=== PATIENT | male | born 1975 | race Caucasian/White ===

== ENCOUNTER 2021-12-02 08:00 | Outpatient (CLI) | payer SELFPAY | END 2021-12-02 23:59 | LOC: LAB.N 08:00 | PROVIDERS: ATTEND Family Medicine | DX: U07.1 COVID-19 (principal) ==

== ENCOUNTER 2021-12-27 09:54 | Emergency (ER) | payer OTHER ==
[2021-12-27 10:06] VITALS: BP 152/95
--- NOTE | 2021-12-27 10:15 | ED Physician Documentation ---
PD HPI HEADACHE - Stated complaint Stated Complaint: HEAD INJURY - Chief complaint Chief Complaint: Trauma Hd/Nk - History obtained from History obtained from: Patient - Additional information Additional information: 46-year-old gentleman, active duty in the [employer]. Approximate 48 hours ago he was coming down off of some stairs off of a plane and slipped and hit the back of his head on the steps. He did not lose consciousness but was dazed. Had a severe headache initially but that has since defervesced to mild to moderate. No nausea or vomiting. He went to walk-in clinic and was referred here for further evaluation and treatment. Review of Systems Constitutional: denies: Fever, Chills Nose: denies: Rhinorrhea / runny nose, Congestion, Epistaxis Throat: denies: Sore throat Cardiac: denies: Chest pain / pressure, Palpitations Respiratory: denies: Dyspnea, Cough PD PAST MEDICAL HISTORY - Past Medical History Past Medical History: Yes Cardiovascular: Hypertension, Deep vein thrombosis Respiratory: None Neuro: None Endocrine/Autoimmune: None GI: GERD : None HEENT: None Psych: None Musculoskeletal: None Derm: None - Past Surgical History Past Surgical History: No - Present Medications Home Medications: Ambulatory Orders Medication Instructions Recorded Confirmed Aspirin [[place] Aspirin] 81 mg PO DAILY 12/27/21 12/27/21 Famotidine [Pepcid] 20 mg PO DAILY 12/27/21 12/27/21 Omeprazole Magnesium 20 mg PO DAILY 12/27/21 12/27/21 - Allergies Allergies/Adverse Reactions: Allergies Allergy/AdvReac Type Severity Reaction Status Date / Time No Known Drug Allergies Allergy Verified 12/27/21 10:06 - Social History Does the pt smoke?: No Smoking Status: Never smoker Does the pt drink ETOH?: Yes Does the pt have substance abuse?: No - Immunizations Immunizations are current?: Yes PD ED PE NORMAL - Vitals Vital signs reviewed: Yes - General General: Alert and oriented X 3, No acute distress - HEENT HEENT: PERRL, EOMI - Neck Neck: Supple, no meningeal sign, No bony TTP - Neuro Neuro: Alert and oriented X 3, 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 He went to the walk-in clinic and was advised to come here. He does not strictly fit criteria needed for CT especially given the timeframe and the fact that his symptoms are improving. We discussed CT scanning and it was offered but he declined after discussion. Departure - Departure Disposition: 01 Home, Self Care Clinical Impression: Concussion Qualifiers: Encounter type: initial encounter Loss of consciousness presence/duration: without LOC Qualified Code(s): S06.0X0A - Concussion without loss of consciousness, initial encounter Condition: Good Record reviewed to determine appropriate education?: Yes Instructions: ED Concussion Comments: If you develop worsening symptoms, especially if the headache were to get worse or you get vomiting please return for reevaluation. Otherwise no specific therapy is necessary. Tylenol and ibuprofen as needed for pain. Forms: Activity restrictions
== END 2021-12-27 10:28 | disposition home or self-care (01) ==
LOC: ED 09:54
DX: S06.0X0A Concussion without loss of consciousness, initial encounter (principal); W01.198A Fall on same level from slipping, tripping and stumbling with subsequent striking against other object, initial encounter; Y99.1 Military activity; I10 Essential (primary) hypertension; Z86.718 Personal history of other venous thrombosis and embolism
CPT/HCPCS: 99281; 99282

== ENCOUNTER 2022-02-01 09:02 | Outpatient (CLI) | payer OTHER ==
[2022-02-01 10:08] VITALS: BP 147/94
--- NOTE | 2022-02-01 10:08 | SLEEP CARE CONSULTATION ---
Information from patient questionnaire entered by Isiah Camargo MA. I have reviewed and concur with the information entered by Isiah Camargo MA. This document represents the service I personally performed and the decisions made by , Samantha aGllo ARNP. History of Present Illness Service Date and Time: 02/01/2022 0902 Reason for Visit: New patient (ONSET 11/2021, NO PRIORS,) Chief Complaint: reports: Unrefreshed sleep, Snoring, Observed pauses in breathi ng, Fatigue Date of Onset: LAST 5 YEARS Usual bedtime: 2200 Time it takes to fall asleep: RIGHT AWAY Snores at night: Yes Observed to quit breathing while asleep: Yes Sleeps alone due to snoring: No Number of times waking at night: 1-2 Reasons for waking at night: reports: Snoring, Gasping for air, Bathroom Toss, Turn, or Twitch while sleeping: Yes Recalls having dreams: No Usually gets out of bed at: DEPENDS ON WORK; work can shift from nights to days, changing weekly someti Feels refreshed in the morning: No Morning headache: Yes (1-2 times a week) Sleepy or fatigued during the day: Yes Ever fallen asleep while driving: Yes (earlier age, not recent; no drowsy driving now) Takes day naps: Yes (situational, after long days at work) Dreams during day naps: Yes Prior sleep studies: No Additional HPI information: I had the pleasure of seeing JUAN WARE today regarding the possibility of him having a sleep disorder. His current complaints are fatigue, observed pauses in breathing, snoring and unrefreshed sleep. He states he wakes up drowsy and exhausted. He will eat to try to get energy. He has been told he snores loudly and will stop breathing while sleeping. He feels like he has woke up gasping/choking for air, sometimes snoring. - Parasomnia Symptoms Ever been unable to move upon waking from sleep: No Walks in sleep: No Talks in sleep: Yes Ever acted out dreams in sleep: No Ever felt weak in the knees when startled or emotional: Yes (does not fall to ground) Bothered by creepy, crawly, restless sensations in legs: Yes (nightly leg jerks, gabriel after heavy exercise) Problems with memory or concentration: Yes (concentration issues) Subjective Initial [place] Sleepiness Scale score: 15 (01/23) Past Medical History Past Medical History: reports: GERD, Other (hx of DVT on left leg) Social History The patient's occupation is a [employer]. Patient is Single and lives in . Have you smoked in the past 12 months: No Alcohol use: Yes Alcohol amount and frequency: 1-2 X MONTHLY Caffeine use: Yes Caffeine amount and frequency: 4-5 X WEEKLY Family History Family history of sleep disordered breathing: Yes Family Hx Sleep Apnea: Father: Snoring Allergies and Home Medications Drug allergies reviewed: Yes (NKDA) Home medication list reviewed: Yes Allergy and home medication list: Allergies No Known Drug Allergies Allergy (Verified 12/27/21 10:06) Medications: Baby aspirin Omeprazole Pepcid Review of Systems Weight gain over past 5 years: 55 lbs Cardiovascular: reports: high blood pressure (with Covid infection, improving with exercise), leg or foot swelling Neurological: reports: headaches, head trauma (concussion), fainting or unconsciousness Ear/Nose/Throat: reports: nasal congestion, dry mouth/throat, injury to nose. denies: tonsillectomy, wisdom teeth removed (one pulled, otherwise has 3 others) Endocrine: reports: sluggishness, increased appetite Musculoskeletal: reports: joint pain, back pain, mobility problems Immunologic: reports: sneezing, itching Physical Exam Vital signs obtained and entered by: Trinity CAMARGO CMA [facility] Blood Pressure: 147/94 (PULSE 57, LEFT, RSP 18, ) Cuff size: wrist Heart Rate: 56 O2 Saturation: 98 (PAPER) Height: 5 ft 10 in Weight: 240 lb (W CLOTHES) Body Mass Index: 34.4 BMI Classification: Obese Neck circumference: 16 (INCHES) Mouth and throat: narrow oropharynx Soft palate: long Hard palate: normal Uvula: long Uvula visualization: 25% Mallampati Class III Tongue: enlarged in size with teeth conti on lateral edges Tonsils: 2+ Neck: normal w/o lymphadenopathy or thyromegaly Heart: regular rate and rhythm Lungs: clear bilaterally Impression and Plan 1. Suspected Obstructive Sleep Apnea-Hypopnea Syndrome, as suggested by a history of loud and irregular snoring, observed cessation of breath while asleep , gasping or choking in sleep, morning headache, unrefreshed sleep, cognitive impairment, and excessive daytime sleepiness. Narrow oropharynx and obesity are common predisposing factors for obstructive sleep apnea-hypopnea syndrome. I recommend proceeding to polysomnography to confirm the diagnosis and to assess severity. If the patient has significant sleep disordered breathing, a manual CPAP titration study will also be performed to find the optimal treatment pressure. I informed the patient of what the sleep studies involve and after some discussion, obtained agreement to proceed. The pathophysiology of obstructive sleep apnea-hypopnea syndrome was discussed with the patient and health risks of cardiovascular and cerebrovascular disease if not treated. Risks of drowsy driving discussed in detail and patient advised to avoid long distance driving and to door puller at the first sign of drowsiness. Patient agreed to plan. * Schedule polysomnography +- manual CPAP titration study and return in 1-2 weeks after the study to discuss results. * Avoid long distance driving or driving when feeling sleepy. * Avoid alcohol, sedative and muscle relaxant around bedtime. * Attempt to lose weight. * Review instructions provided by trained office staff on how to prepare for the sleep study. * Return for follow-up after sleep study completed. Counseling Topics: Weight loss health impact Visit Type: In Office Time Spent with Patient (minutes): 31 Provider Statement: I spent 100% of the Face to Face Visit with the patient with greater than 50% spent counseling the patient and coordination of care.
== END 2022-02-01 09:03 | disposition home or self-care (01) ==
LOC: SC 09:02
PROVIDERS: ATTEND Nurse Practitioner Family
DX: R06.83 Snoring (principal); G47.8 Other sleep disorders; R06.81 Apnea, not elsewhere classified; G47.10 Hypersomnia, unspecified; R53.83 Other fatigue; E66.9 Obesity, unspecified; Z68.34 Body mass index [BMI] 34.0-34.9, adult
CPT/HCPCS: 99203; 99212

== ENCOUNTER 2022-02-26 20:22 | Outpatient (CLI) | payer OTHER | END 2022-02-26 20:23 | disposition home or self-care (01) | LOC: SC 20:22 | PROVIDERS: ATTEND Nurse Practitioner Family | DX: G47.33 Obstructive sleep apnea (adult) (pediatric) (principal) | CPT/HCPCS: 95810 ==

== ENCOUNTER 2022-05-08 15:03 | Outpatient (CLI) | payer OTHER ==
[2022-05-08 16:06] VITALS: BP 114/77
--- NOTE | 2022-05-08 16:06 | SLEEP CARE CONSULTATION ---
Information from patient questionnaire entered by Isiah Matthews MA. I have reviewed and concur with the information entered by Isiah Matthews MA. This document represents the service I personally performed and the decisions made by , Samantha Gallo ARNP. History of Present Illness Service Date and Time: 05/08/2022 1503 Initial [place] Sleepiness Scale score: 15 (01/23) Current [place] Sleepiness Scale score: 13 Additional HPI information: JUAN WARE returns for follow up and results of the recently performed polysomnography. I explained the pathophysiology behind obstructive sleep apnea. We then spent quite a bit of time discussing different treatment options. For mild obstructive sleep apnea, surgery and oral appliance are alternatives to nasal CPAP therapy but in moderate or severe cases, nasal CPAP is the most effective and reliable treatment. Because apnea is primarily in supine position, then positional management therapy could be effective. Methods discussed such as positioning with pillows to prevent supine sleep. I reviewed the impact of weight changes on sleep apnea and strongly recommended losing weight. After some discussion, the patient opted to go with the nasal CPAP therapy. Nasal autoCPAP set at 4-15 cmH20 will be ordered with rationale explained. A manual titration study will be ordered if unable to find optimal pressure with office adjustments. I explained how CPAP machine works and what to expect when using the machine. Using CPAP every night in order to get used to it was emphasized. Patient advised to put CPAP mask on before getting into bed so as not to fall asleep without CPAP. To assist acclimation to CPAP use, it could also be used for a short time during day while reading or watching TV. The patient was instructed to call the CPAP supplier to discuss any mechanical problem that may occur. If the mask given is uncomfortable or is difficult to keep on through the night even with adjustment, contact the CPAP supplier as many will replace with another mask style if notified before 30 days. If snoring or perceives is not getting enough air or too much air from the machine, notify this office. Patient counseled not drink alcohol less than 4 hours before bedtime as it can increase snoring and apnea. Patient was cautioned about risks of drowsy driving until sleepiness symptoms resolve. Patient denies drowsy driving. Sleep Study - Results Type of Sleep Study: Polysomnography (F/U POLY, 02/06/2022 [facility], POS,) Prior sleep studies: No Polysomnography/Home Sleep Study results: IMPRESSION: The quality of the study is good. The patient had normal sleep efficiency. The sleep architecture was abnormal for sleep fragmentation and reduced amount of time spent in REM sleep. Respiratory monitoring showed severe obstructive sleep apnea-hypopnea (AHI = 35.9) associated with frequent arousals, oxyhemoglobin desaturation and moderate hypoxia (yovanny oxygen saturation of 76%). The respiratory events occurred more frequently during supine sleep (supine AHI = 80.0; non-supine = 35.74). Snore was loud in intensity. There was no significant periodic leg movement of sleep. Cardiac rhythm was normal sinus rhythm without significant arrhythmia. No abnormal behavior (parasomnia) observed during the night. Allergies and Home Medications Home medication list reviewed: Yes (no changes) Allergy and home medication list: Allergies No Known Drug Allergies Allergy (Verified 12/27/21 10:06) Review of Systems Review of systems same as previous: Yes (no changes) Physical Exam Vital signs obtained and entered by: ESTRADA SOSA Blood Pressure: 114/77 (RESP 16, PULSE 56, LEFT) Heart Rate: 57 O2 Saturation: 97 Height: 5 ft 10 in Weight: 235 lb (CLOTHES) Body Mass Index: 33.7 BMI Classification: Obese Impression and Plan 1. Obstructive Sleep Apnea-Hypopnea Syndrome, severe, with lowest oxygen saturation of 76%. Obviously this is the cause of the patients symptoms of unrefreshed sleep, and excessive daytime sleepiness. Positive pressure therapy could benefit gastric reflux. As mentioned above, the patient will be started on nasal autoCPAP therapy with pressure set at 4-15 cmH2O. Compliance guidelines also reviewed. A copy of compliance guidelines will be given for reference at check out. Because the apnea is more severe supine, I instructed to avoid sleeping supine using pillow positioning until able to start CPAP use. 2. Hypoxemia, moderate, with a yovanny oxygen saturation of 76% and 17.6 minutes spent under 89%. His baseline oxygen saturation was normal with an average oxygen saturation of 93%. * Nasal auto CPAP therapy, pressure at 4-15 cm H2O. * Attempt to lose weight. * Avoid alcohol consumption near bedtime. * Avoid supine sleep until using CPAP. * The patient is again cautioned about driving until sleepiness completely resolves. * Return one month after CPAP obtained. I will assess response to therapy and compliance at that time. Counseling Topics: Sleeping position, Weight loss health impact Visit Type: In Office Time Spent with Patient (minutes): 21 Provider Statement: I spent 100% of the Face to Face Visit with the patient with greater than 50% spent counseling the patient and coordination of care.
== END 2022-05-08 15:04 | disposition home or self-care (01) ==
LOC: SC 15:03
PROVIDERS: ATTEND Nurse Practitioner Family
DX: G47.33 Obstructive sleep apnea (adult) (pediatric) (principal); R09.02 Hypoxemia; E66.9 Obesity, unspecified; Z68.33 Body mass index [BMI] 33.0-33.9, adult
CPT/HCPCS: 99212; 99213

== ENCOUNTER 2022-09-20 08:18 | Outpatient (CLI) | payer OTHER | END 2022-09-20 08:19 | disposition home or self-care (01) | LOC: SC 08:18 | PROVIDERS: ATTEND Nurse Practitioner Family | DX: G47.33 Obstructive sleep apnea (adult) (pediatric) (principal) | CPT/HCPCS: 95805 ==

== ENCOUNTER 2022-09-22 20:17 | Emergency (ER) | payer OTHER ==
[2022-09-22] MEDS ORDERED: PROPARACAINE 0.5% OPHTH DROPS 15 ML EACHEYE STA (20:30)
[2022-09-22] MEDS ORDERED: POLYMYXIN B/TRIMETH OPHTH DROPS LEFTEYE STA (20:41)
--- NOTE | 2022-09-22 20:44 | ED Physician Documentation ---
PD HPI OPHTHO - Stated complaint Stated Complaint: EYE INJ - Chief complaint Chief Complaint: Heent - History obtained from History obtained from: Patient - History of Present Illness Timing - onset: Today Timing - duration: Hours (1) Timing - details: Abrupt onset Pain level max: 6 Pain level now: 5 Location: Left Associated symptoms: Redness, Tearing, FB sensation - Additional information Additional information: Patient is a 47-year-old male who presents to the emergency department left eye injury. He was playing with his dog when the dog's nail accidentally scratched him in the left eye. Complains of blurred vision. Nothing makes it better or worse. Does not wear glasses or contacts. Review of Systems Constitutional: denies: Fever Eyes: reports: Photophobia PD PAST MEDICAL HISTORY - Past Medical History Cardiovascular: Hypertension, Deep vein thrombosis Respiratory: None Neuro: None Endocrine/Autoimmune: None GI: GERD : None HEENT: None Psych: None Musculoskeletal: None Derm: None - Past Surgical History Past Surgical History: No - Present Medications Home Medications: Ambulatory Orders Medication Instructions Recorded Confirmed Aspirin [[place] Aspirin] 81 mg PO DAILY 12/27/21 09/22/22 Famotidine [Pepcid] 20 mg PO DAILY 12/27/21 09/22/22 Omeprazole Magnesium 20 mg PO DAILY 12/27/21 09/22/22 - Allergies Allergies/Adverse Reactions: Allergies Allergy/AdvReac Type Severity Reaction Status Date / Time No Known Drug Allergies Allergy Verified 09/22/22 20:27 - Social History Does the pt smoke?: No Smoking Status: Never smoker Does the pt drink ETOH?: Yes Does the pt have substance abuse?: No - Immunizations Immunizations are current?: Yes PD ED PE NORMAL - Vitals Vital signs reviewed: Yes - General General: Alert and oriented X 3, No acute distress - HEENT HEENT: Moist mucous membranes, Other (Right eye is normal. Left eye has conjunctival injection with clear tearing. Fluorescein uptake on the medial aspect of the cornea and sclera. Negative Aurora sign.) - Derm Derm: Warm and dry - Neuro Neuro: Alert and oriented X 3 - Psych Psych: Normal mood, Normal affect Results - Vitals Vitals: Vital Signs - 24 hr 09/22/22 09/22/22 20:23 21:25 Temperature 36.2 C L 36.9 C Heart Rate 60 60 Respiratory 16 16 Rate Blood Pressure 141/90 H 128/65 O2 Saturation 96 98 Oxygen O2 Source Room air PD MEDICAL DECISION MAKING - ED course Complexity details: considered differential, d/w patient ED course: Patient with a left eye corneal abrasion. Will place on Polytrim ophthalmic. I will have him follow-up with ophthalmology if he fails to improve as expected. Patient counseled regarding signs and symptoms for which I believe and urgent re-evaluation would be necessary. Patient with good understanding of and agreement to plan and is comfortable going home at this time This document was made in part using voice recognition software. While efforts are made to proofread this document, sound alike and grammatical errors may occur. Departure - Departure Disposition: 01 Home, Self Care Clinical Impression: Corneal abrasion, left Qualifiers: Encounter type: initial encounter Qualified Code(s): S05.02XA - Injury of conjunctiva and corneal abrasion without foreign body, left eye, initial encounter Condition: Good Instructions: ED Eye Injury Corneal Abrasion Follow-Up: Miguelito Rascon MD [Provider Admit Priv/Credential] - Within 3 Days Comments: Please use the ophthalmic antibiotics as prescribed. They were [facility] to [facility] in [place]. Artificial gel tears may help discomfort in your eye as well. These are [id number]. If you are not better in 2 to 3 days, please follow-up with ophthalmology. Discharge Date/Time: 09/22/22 21:25
[2022-09-22 21:26] VITALS: BP 128/65
== END 2022-09-22 21:25 | disposition home or self-care (01) ==
LOC: ED 20:17
DX: S05.02XA Injury of conjunctiva and corneal abrasion without foreign body, left eye, initial encounter (principal); W54.8XXA Other contact with dog, initial encounter; Y93.89 Activity, other specified; I10 Essential (primary) hypertension; Z79.82 Long term (current) use of aspirin
CPT/HCPCS: 99282; A9270; J3490

== ENCOUNTER 2022-11-16 13:34 | Outpatient (CLI) | payer OTHER ==
--- NOTE | 2022-11-16 14:16 | SLEEP CARE CONSULTATION ---
Information from patient questionnaire entered by Harper Campoverde. I have reviewed and concur with the information entered by Harper Campoverde. This document represents the service I personally performed and the decisions made by , Samantha Gallo ARNP. History of Present Illness Service Date and Time: 11/16/2022 1334 Previous diagnosis: Severe, Obstructive Sleep Apnea-Hypopnea Syndrome AHI: 35.9 (in 2021) Reason for follow up: other (F/U MWT) Equipment type: CPAP (ResMed Airsense 11 s/u 05/2022) Equipment obtained from: [employer] (getting supplies) Mask style: Full face Backup mask available: No (will keep old mask when replaced) Last cushion change: 6 months Prior sleep studies: No Type of Sleep Study: Polysomnography (F/U POLY, 02/06/2022 [facility], POS,) HPI additional information: JUAN WARE was diagnosed to have severe, AHI 35.9, obstructive sleep apnea- hypopnea syndrome and returned today for follow-up of MWT. The patient was informed of the following findings: His MWT is normal. There is no evidence of daytime sleepiness. Sleep Study - Results Type of Sleep Study: Polysomnography (F/U POLY, 02/06/2022 [facility], POS,) Prior sleep studies: No CPAP Compliance Data - Data Reviewed with Patient Average duration of nightly device use: 4 hours 49 minutes Compliance rate %: 63 (/30 days used) Current pressure setting (cmH2O): 4-15 (median 5.2, avg 8.4, max 9.4) Average residual AHI: 0.7 Central apnea: 0.1 Obstructive apnea: 0.2 Average large leak: 2.6 LPM Subjective Missed days of use due to: reports: travel (for work) Patient concerns: reports: mask discomfort (side sleeper, hose pulls on mask), air blowing in eyes, nasal congestion. denies: aerophagia, mask leak noise, condensation in mask/hose, dry mouth, nose, throat, epistaxis Observed to snore while using device: No Current pressure setting perceived as: too low On therapy, patient: reports: sleeping better, awakening more refreshed, being more awake and alert during the day, more rested overall. denies: drowsiness while driving Initial [place] Sleepiness Scale score: 15 (01/23) Current [place] Sleepiness Scale score: 3 (11/16/22) Allergies and Home Medications Known drug allergies: No Drug allergies reviewed: Yes Home medication list reviewed: Yes (no changes) Review of Systems Review of systems same as previous: Yes (no changes) Physical Exam Vital signs obtained and entered by: HARPER Tran MA Blood Pressure: 142/90 (LEFT ARM) Cuff size: regular Heart Rate: 66 O2 Saturation: 96 Height: 5 ft 11 in Weight: 250 lb 6.4 oz Body Mass Index: 34.9 BMI Classification: Obese Impression and Plan 1. Obstructive Sleep Apnea-Hypopnea Syndrome, severe, with fair treatment compliance and good apnea control. On CPAP therapy, the patient has better sleep quality and is more rested overall. He comes in today for results of his MWT which showed no evidence of daytime sleepiness with current CPAP therapy in place for his FARA. He has fair compliance at 63%. I discussed with patient how to bring the compliance up with increasing time in mask every night as well as wearing it every night. He voiced understanding. He is having struggles with his full face mask slipping down on face. He states he is getting more used to it and is breathing through his nose well in the full face mask. He would like to try a nasal mask. I will write for a mask refitting for a nasal mask and he can try the nasal cushions or nasal pillow cushions. He sometimes feels the pressure is too low when he is waking up from sleep. I will adjust his pressure to 8-11 cmH2O to reduce this air hunger. He will let me know if the change is uncomfortable or if he has further concerns. Patient's apnea severity and rationale for treatment to reduce apnea, improve sleep quality and reduce cardiovascular and cerebrovascular events was reviewed. I also reviewed the benefit of consistent device use of CPAP for gastric reflux. 2. Obesity, unspecified. Currently patients BMI is 34.9. Obesity increases the risk of apnea, CPAP pressure requirements and overall health risks especially cardiovascular and diabetes. Thus patient is advised to lose weight. * Mask refitting for nasal mask * Change auto CPAP pressure to 8-11 cmH2O * Notify me if snoring with mask or feeling that the pressure is too much or too little * Attempt to lose weight * Call this office if any problems using CPAP * Return for follow up in 1-2 months, or sooner if concerns arise Counseling Topics: Spare mask, Weight loss health impact Visit Type: In Office Time Spent with Patient (minutes): 22 Provider Statement: I spent 100% of the Face to Face Visit with the patient with greater than 50% spent counseling the patient and coordination of care.
[2022-11-16 14:17] VITALS: BP 142/90
== END 2022-11-16 13:35 | disposition home or self-care (01) ==
LOC: SC 13:34
PROVIDERS: ATTEND Nurse Practitioner Family
DX: G47.33 Obstructive sleep apnea (adult) (pediatric) (principal); E66.9 Obesity, unspecified; Z68.34 Body mass index [BMI] 34.0-34.9, adult
CPT/HCPCS: 99212; 99213

== ENCOUNTER 2022-12-18 13:32 | Outpatient (CLI) | payer OTHER ==
[2022-12-18 14:22] VITALS: BP 130/80
--- NOTE | 2022-12-18 14:22 | SLEEP CARE CONSULTATION ---
Information from patient questionnaire entered by Peggy Campoverde. I have reviewed and concur with the information entered by Peggy Campoverde. This document represents the service I personally performed and the decisions made by me, Samantha Gallo ARNP. History of Present Illness Service Date and Time: 12/18/2022 1332 Previous diagnosis: Severe, Obstructive Sleep Apnea-Hypopnea Syndrome AHI: 35.9 (in 2021) Reason for follow up: one month (F/U) Equipment type: CPAP (RESMED Airsense 11, s/u 05/2022) Equipment obtained from: [employer] (getting supplies) Mask style: Full face (but prefers nasal pillows) Backup mask available: Yes (other mask) Prior sleep studies: No Type of Sleep Study: Polysomnography (F/U POLY, 02/06/2022 [facility], POS,) HPI additional information: JUAN WARE was diagnosed to have severe, AHI 35.9, obstructive sleep apnea- hypopnea syndrome and returned today for CPAP therapy one month compliance follow-up. Sleep Study - Results Type of Sleep Study: Polysomnography (F/U POLY, 02/06/2022 [facility], POS,) Prior sleep studies: No CPAP Compliance Data - Data Reviewed with Patient Average duration of nightly device use: 5 hours 42 mins Compliance rate %: 70 (27/30 days used (90%)) Current pressure setting (cmH2O): 8-9 Average residual AHI: 1.2 Central apnea: 0.1 Obstructive apnea: 0.2 Subjective Missed days of use due to: reports: illness, other (fell asleep without mask) Patient concerns: reports: mask discomfort (had to change to full face mask when sick and has to tighten this to reduce leaking), nasal congestion (from illness), dry mouth, nose, throat. denies: aerophagia, air blowing in eyes, mask leak noise, condensation in mask/hose, epistaxis Observed to snore while using device: No Current pressure setting perceived as: comfortable On therapy, patient: reports: sleeping better, awakening more refreshed, being more awake and alert during the day, more rested overall. denies: drowsiness while driving Initial [place] Sleepiness Scale score: 15 (01/23) Current [place] Sleepiness Scale score: 3 (12/18/22) Allergies and Home Medications Drug allergies reviewed: Yes (NKDA) Home medication list reviewed: Yes (no changes) Review of Systems Review of systems same as previous: Yes (no changes) Physical Exam Vital signs obtained and entered by: PEGGY Tran MA Blood Pressure: 130/80 (left arm) Cuff size: regular Heart Rate: 63 O2 Saturation: 97 Height: 5 ft 11 in Weight: 252 lb 3.2 oz Body Mass Index: 35.2 BMI Classification: Obese Impression and Plan 1. Obstructive Sleep Apnea-Hypopnea Syndrome, severe, with good treatment compliance and good apnea control. On CPAP therapy, the patient has better sleep quality and is more rested overall. He has good compliance at 70% with 27/30 days used. He missed a couple days from illness and falling asleep without mask on. He will sometimes wake up and find the mask off his face. Patient's apnea severity and rationale for treatment to reduce apnea, improve sleep quality and reduce cardiovascular and cerebrovascular events was reviewed. I also reviewed the benefit of consistent device use of CPAP for gastric reflux. 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 He voiced agreement. 2. Obesity, unspecified. Currently patients BMI is 35.2. Obesity increases the risk of apnea, CPAP pressure requirements and overall health risks especially c ardiovascular and diabetes. Thus patient is advised to lose weight. * Continue auto CPAP pressure at 8-9 cmH2O * Notify me if snoring with mask or feeling that the pressure is too much or too little * Attempt to lose weight * Call this office if any problems using CPAP * Return for follow up in 1 month, or sooner if concerns arise Counseling Topics: Weight loss health impact Visit Type: In Office Time Spent with Patient (minutes): 20 Provider Statement: I spent 100% of the Face to Face Visit with the patient with greater than 50% spent counseling the patient and coordination of care.
== END 2022-12-18 13:33 | disposition home or self-care (01) ==
LOC: SC 13:32
PROVIDERS: ATTEND Nurse Practitioner Family
DX: G47.33 Obstructive sleep apnea (adult) (pediatric) (principal); E66.9 Obesity, unspecified; Z68.35 Body mass index [BMI] 35.0-35.9, adult
CPT/HCPCS: 99212; 99213

== ENCOUNTER 2023-01-22 11:00 | Outpatient (CLI) | payer OTHER ==
[2023-01-22 11:28] VITALS: BP 138/80
--- NOTE | 2023-01-22 11:28 | SLEEP CARE CONSULTATION ---
Information from patient questionnaire entered by Peggy Campoverde. I have reviewed and concur with the information entered by Peggy Campoverde. This document represents the service I personally performed and the decisions made by , Samantha Gallo ARNP. History of Present Illness Service Date and Time: 01/22/2023 1100 Previous diagnosis: Severe, Obstructive Sleep Apnea-Hypopnea Syndrome AHI: 35.9 (in 2021) Reason for follow up: one month (F/U) Equipment type: CPAP (RESMED Airsense 11, s/u 05/2022) Equipment obtained from: [employer] (getting supplies) Mask style: Full face (but prefers nasal pillows) Backup mask available: Yes (other mask) Prior sleep studies: No Type of Sleep Study: Polysomnography (F/U POLY, 02/06/2022 [facility], POS,) HPI additional information: JUAN WARE was diagnosed to have severe, AHI 35.9, obstructive sleep apnea- hypopnea syndrome and returned today for CPAP therapy one month follow-up. Sleep Study - Results Type of Sleep Study: Polysomnography (F/U POLY, 02/06/2022 [facility], POS,) Prior sleep studies: No CPAP Compliance Data - Data Reviewed with Patient Average duration of nightly device use: 6 HRS 32 MIN Compliance rate %: 93 (12/22/22-01/20/23; 30/30 days used) Current pressure setting (cmH2O): 8-9 Average residual AHI: 1.0 Central apnea: 0.2 Obstructive apnea: 0.3 Hypopnea: 0.3 Subjective Missed days of use due to: reports: mask issues, other (internet connection) Patient concerns: reports: other (headache). denies: aerophagia, mask discomfort, air blowing in eyes, mask leak noise, condensation in mask/hose, nasal congestion, dry mouth, nose, throat, epistaxis Observed to snore while using device: No (having sore throat) Current pressure setting perceived as: comfortable On therapy, patient: reports: sleeping better, awakening more refreshed, being more awake and alert during the day, more rested overall. denies: drowsiness while driving Initial [place] Sleepiness Scale score: 15 (01/23) Current [place] Sleepiness Scale score: 4 (01/22/23) Allergies and Home Medications Known drug allergies: No Drug allergies reviewed: Yes Home medication list reviewed: Yes (no changes) Review of Systems Review of systems same as previous: Yes (no changes) Physical Exam Vital signs obtained and entered by: PEGGY Tran MA Blood Pressure: 138/80 (LEFT ARM) Cuff size: regular Heart Rate: 59 O2 Saturation: 98 Height: 5 ft 11 in Weight: 256 lb 6.4 oz Body Mass Index: 35.7 BMI Classification: Obese Impression and Plan 1. Obstructive Sleep Apnea-Hypopnea Syndrome, severe, with good treatment compliance and good apnea control. On CPAP therapy, the patient has better sleep quality and is more rested overall. He has had a couple headaches but feels he may not have drank enough water. He thought he may be snoring because occasionally he has woken up with a dry, sore throat. I explained that he may be oral venting which can dry out his mouth or throat. I advised him to try to keep mouth closed by holding tongue against roof of mouth, use a chinstrap or mouth tapes to keep his mouth closed and reduce oral venting. He voiced understanding. Patient was able to bring his compliance up to 93%. 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 I will have him come back in in a week to recheck his compliance. This will give time for the last missed day to drop off and he should be able to recheck compliance as long as he does not miss any nights in the next week and have 4 hours or more. He voiced understanding and agreement with this plan. Patient's apnea severity and rationale for treatment to reduce apnea, improve sleep quality and reduce cardiovascular and cerebrovascular events was reviewed. I also reviewed the benefit of consistent device use of CPAP for gastric reflux. 2. Obesity, unspecified. Currently patients BMI is 35.7. Obesity increases the risk of apnea, CPAP pressure requirements and overall health risks especially cardiovascular and diabetes. Thus patient is advised to lose weight. * Continue auto CPAP pressure at 8-9 cmH2O * Notify me if snoring with mask or feeling that the pressure is too much or too little * Attempt to lose weight * Call this office if any problems using CPAP * Return for follow up in 1 week to recheck compliance, or sooner if concerns arise Counseling Topics: Spare mask, Weight loss health impact Visit Type: In Office Time Spent with Patient (minutes): 20 Provider Statement: I spent 100% of the Face to Face Visit with the patient with greater than 50% spent counseling the patient and coordination of care.
== END 2023-01-22 11:01 | disposition home or self-care (01) ==
LOC: SC 11:00
PROVIDERS: ATTEND Nurse Practitioner Family
DX: G47.33 Obstructive sleep apnea (adult) (pediatric) (principal); E66.9 Obesity, unspecified; Z68.35 Body mass index [BMI] 35.0-35.9, adult
CPT/HCPCS: 99212; 99213

== ENCOUNTER 2024-01-28 13:56 | Outpatient (CLI) | payer OTHER | END 2024-01-28 13:57 | disposition home or self-care (01) | LOC: LAB 13:56 | PROVIDERS: ATTEND Family Medicine | DX: M79.652 Pain in left thigh (principal); Z86.718 Personal history of other venous thrombosis and embolism | CPT/HCPCS: 36415; 85379 ==

== ENCOUNTER 2024-01-28 22:02 | Outpatient (CLI) | payer OTHER ==
--- NOTE | 2024-01-28 23:18 | Ultrasound Report ---
PROCEDURE: Duplex Ext Veins Left INDICATIONS: HX OF DVT, LEFT THIGH PAIN TECHNIQUE: Real-time imaging, as well as color and pulse Doppler interrogation, were performed of the lower extr emity deep veins from the inguinal ligament to the popliteal fossa. Attempted visualization of the ca lf veins was performed. COMPARISON: None. FINDINGS: Intraluminal thrombus within the popliteal vein, nonocclusive. Remaining vessels are widely patent. IMPRESSION: Nonocclusive DVT of the popliteal vein. Agree with preliminary report between the ordering provider and room clerk at 10:50 PM. Reviewed by: Bharat Olmedo MD on 01/28/2024 11:16 PM PDT Approved by: Bharat Olmedo MD on 01/28/2024 11:16 PM PDT Station ID: [id number]
== END 2024-01-28 22:03 | disposition home or self-care (01) ==
LOC: DI 22:02
PROVIDERS: ATTEND Family Medicine
DX: I82.432 Acute embolism and thrombosis of left popliteal vein (principal); Z86.718 Personal history of other venous thrombosis and embolism
CPT/HCPCS: 36415; 85379

== ENCOUNTER 2024-02-19 06:51 | Outpatient (CLI) | payer OTHER ==
--- NOTE | 2024-02-19 23:09 | Ultrasound Report ---
PROCEDURE: Abdomen Limited INDICATIONS: HEPATOMEGALY TECHNIQUE: Real-time focused scanning was performed of the abdomen, with image documentation. COMPARISONS: None. FINDINGS: Liver: Liver is normal in size and homogeneous in echotexture. Parenchyma is diffusely echogenic. Ma in portal vein is patent with hepatopedal flow. Gallbladder: Unremarkable. Biliary ducts: Intrahepatic bile ducts are non-dilated. Extrahepatic bile duct caliber measures 4.6 mm. Normal is 6-7 mm or less in diameter, or 10 mm or less post-cholecystectomy. Pancreas: Visualized portions of the pancreas are sonographically normal. Of note, the distal body and tail are not well seen. Right kidney: Normal in size and echotexture. Right kidney measures 10.9 cm long. No hydronephrosis or nephrolithiasis. No solid masses. No complex renal cystic lesions which require follow-up. IMPRESSION: Liver parenchyma is diffusely echogenic which may be seen in the setting of parenchymal disease such as steatosis. Reviewed by: Arias Liu MD on 02/19/2024 11:08 PM PDT Approved by: Arias Liu MD on 02/19/2024 11:08 PM PDT Station ID: [id number]
== END 2024-02-19 06:52 | disposition home or self-care (01) ==
LOC: DI 06:51
PROVIDERS: ATTEND Internal Medicine
DX: R16.0 Hepatomegaly, not elsewhere classified (principal); E66.9 Obesity, unspecified

== ENCOUNTER 2024-03-11 18:49 | Outpatient (CLI) | payer OTHER ==
--- NOTE | 2024-03-11 20:01 | Ultrasound Report ---
PROCEDURE: Duplex Ext Veins Left INDICATIONS: DVT TECHNIQUE: Real-time imaging, as well as color and pulse Doppler interrogation, were performed of the lower extr emity deep veins from the inguinal ligament to the popliteal fossa. Attempted visualization of the ca lf veins was performed. COMPARISON: 01/28/2024 FINDINGS: Redemonstration of nonocclusive thrombus involving the popliteal vein. The deep venous stru ctures proximally appear widely patent. No new deep venous thrombosis identified. Limited visualizati on of the peroneal vessels. IMPRESSION: Redemonstration of nonocclusive deep venous thrombus of the popliteal vein. No new deep venous thrombosis identified. Reviewed by: Kevin Lindsey MD on 03/11/2024 8:00 PM PDT Approved by: Kevin Lindsey MD on 03/11/2024 8:00 PM PDT Station ID: [id number]
== END 2024-03-11 18:50 | disposition home or self-care (01) ==
LOC: DI 18:49
PROVIDERS: ATTEND Internal Medicine
DX: I82.432 Acute embolism and thrombosis of left popliteal vein (principal)